=== PATIENT | male | born 1960 | race Caucasian/White ===

== ENCOUNTER 2018-02-18 13:13 | Day surgery (SDC) | payer BC ==
[2018-02-16 16:13] VITALS: BMI 25.7
[2018-02-18] MEDS ORDERED: ONDANSETRON 4 MG/2 ML VIAL IVPUSH ONE (14:32)
[2018-02-18] MEDS ORDERED: PROPOFOL 20 ML ONE (14:46)
[2018-02-18] MEDS ORDERED: MIDAZOLAM HCL 2 MG/2 ML SINGLE DOSE VIAL ONE (14:52)
[2018-02-18] MEDS ORDERED: LIDOCAINE HCL 2% JELLY (5 ML/TUBE) ONE (15:33)
[2018-02-18] MEDS ORDERED: DEXAMETHASONE SOD PHOSPHATE 4 MG/1 ML VIAL ONE (15:33)
[2018-02-18] MEDS ORDERED: KETOROLAC TROMETHAMINE 30 MG/1 ML VIAL ONE (15:33)
[2018-02-18] MEDS ORDERED: ONDANSETRON 4 MG/2 ML VIAL ONE (15:33)
[2018-02-18] MEDS ORDERED: PROMETHAZINE HCL 25 MG/1 ML VIAL IVPUSH PRN (16:26)
[2018-02-18] MEDS ORDERED: oxyCODONE HCL 5 MG TABLET PO PRN ×2 (16:26)
[2018-02-18] MEDS ORDERED: ONDANSETRON 4 MG/2 ML VIAL IVPUSH PRN (16:26)
[2018-02-18 17:39] VITALS: TEMP 97.9
[2018-02-18 17:47] VITALS: BP 122/85; PULSE 70
--- NOTE | 2018-02-19 09:04 | OP ---
DATE OF OPERATION: 02/18/2018 PREOPERATIVE DIAGNOSIS: Left hand deep infection with abscess. POSTOPERATIVE DIAGNOSIS: Left hand deep infection with abscess. OPERATIVE PROCEDURE: Incision and drainage and debridement of left hand deep abscess within flexor tendon sheath and deep bursa. SURGEON: Dago Senior MD ANESTHESIA: General. COMPLICATIONS: None. ESTIMATED BLOOD LOSS: Minimal. INDICATION FOR PROCEDURE: The patient is a 57-year-old male who is status post I&D of a deep abscess in the thenar area as well as flexor tendon sheath. He had persistent drainage and was indicated for further debridement. Risks, benefits, and alternatives were discussed with the patient at length. Proper informed consent was obtained. PROCEDURE: After proper identification of the patient and the correct operative site, patient was brought to the operating room and placed supine on the operative table. All bony prominences were well padded. Intravenous antibiotics were given. A timeout procedure was performed. Left upper extremity was prepped and draped in usual sterile fashion. A well-padded tourniquet was placed as well as a sterile prep. The hand was not exsanguinated. It was merely elevated, and the tourniquet was inflated. The patient's prior incision was re-opened, and a small amount of pus was still seen visualized within the deep tissues, into the flexor tendon sheath. Further necrotic tissue was found in the area and was aggressively debrided. There was further damage to the flexor tendon which was also debrided. There was no motion at the IP or MP joints. Thorough irrigation was performed of all tissue, and devitalized tissue was removed. No further pus was elicited at this time, and the wound was loosely approximated with nylon sutures. Sterile dressings were applied. Splint was placed. Patient was reversed from anesthesia and brought to Recovery in stable condition. He tolerated the procedure well. DAGO SENIOR M.D. [id number]
== END 2018-02-18 17:47 | disposition home or self-care (01) ==
LOC: FASU 13:13
PROVIDERS: ATTEND Orthopaedic Surgery Hand Surgery
PROC: 0L980ZZ Drainage of Left Hand Tendon, Open Approach (ICD-10-PCS; 2018-02-18)
PROC: 0M980ZZ Drainage of Left Hand Bursa and Ligament, Open Approach (ICD-10-PCS; principal; 2018-02-18 15:00)
DX: L02.512 Cutaneous abscess of left hand (principal)
CPT/HCPCS: 87070; 87102; 87116; 87186; 87205; 87206; 87210; 94760